=== PATIENT | male | born 1995 | race Two or more races ===

== ENCOUNTER 2024-08-31 19:24 | Emergency (ER) | payer OTHER ==
[~2024-08-31] VITALS: Ht 177.8 cm; Wt 68.9 kg
[2024-08-31 20:03] VITALS: BP 123/77; O2SAT 100
[2024-08-31] MEDS ORDERED: ACETAMINOPHEN 500 MG GEL..CAP PO ONE (21:30)
[2024-08-31 21:59] LABS: HEMATOCRIT 40.7 % (39.0-48.0); HEMOGLOBIN 13.7 g/dL (13-16.00); MEAN CELL VOLUME 82.6 fL (80.0-100.00); MEAN CORPUSCULAR HEMOGLOBIN 27.8 pg (27.00-32.0); MEAN CORPUSCULAR HGB CONC 33.7 g/dl (32.0-36.0); RED BLOOD COUNT 4.93 M/uL (4.00-6.00); RED CELL DISTRIBUTION WIDTH 13.6 % (11.5-14.5)
[2024-08-31 22:07] LABS: PLATELET COUNT 116 K/uL (150-450)
[2024-08-31] MEDS ORDERED: ZITHROMAX500 MG PO (22:42)
== END 2024-08-31 22:51 ==
LOC: ER 19:26
PROVIDERS: Nurse Practitioner Family
DX: R53.81 Other malaise (principal); J03.90 Acute tonsillitis, unspecified; Z20.822 Contact with and (suspected) exposure to COVID-19